=== PATIENT | male | born 1970 | race Caucasian/White ===

== ENCOUNTER 2021-12-07 16:10 | Emergency (ER) | payer OTHER ==
[2021-12-07 19:58] LABS: BASOPHIL 0.9 % (0-2); EOSINOPHIL 2.8 % (0-5); HCT 53.5 % (42.0-52.0); HGB 16.9 g/dl (13.2-18.0); LYMPHOCYTE 28.9 % (15-48); MCHC 31.6 g/dL (32.0-36.0); MCV 85.3 fL (78.0-100.0); MONOCYTE 6.4 % (0-12); MPV 10.8 fL (6.0-9.5); NEUTROPHIL 60.4 % (41-80); NRBC 0; PLT 233 K/uL (150-400); RBC 6.27 M/uL (4.70-6.00); RDW 13.2 % (11.5-14.0); WBC 11.3 K/uL (4.0-10.5)
[2021-12-07 20:20] LABS: BUN/CREAT RATIO (CALC) 13.3 RATIO; CREATININE 1.13 mg/dL (0.67-1.17); POTASSIUM 4.9 mmol/L (3.5-5.1)
== END 2021-12-07 21:58 | disposition home or self-care (01) ==
LOC: FER 16:10
PROVIDERS: Nurse Practitioner Family
DX: M79.602 Pain in left arm (principal)
CPT/HCPCS: 36415; 71045; 80048; 84484; 85025; 93005